=== PATIENT | female | born 1985 | race Caucasian/White ===

== ENCOUNTER 2020-10-14 05:49 | Emergency (ER) | payer BC ==
[~2020-10-14] VITALS: Ht 167.6 cm; Wt 68.1 kg
--- NOTE | 2020-10-14 06:17 | PHYS DOC ---
General Adult EDM: Chief Complaint: VAGINAL BLEEDING HPI: HPI: History obtained from patient. Patient is a 35-year-old female with no reported past medical history who presents with chief complaint of vaginal bleeding. Patient estimates she is currently 10 weeks . 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 States she woke up this morning and noted a light amount of bleeding on her underwear. She denies any clot passage. States it is significantly less than the amount of a period. Denies any abdominal pain. Denies syncope or lightheadedness. States that she did have a miscarriage in July 2020. States that she became shortly after this. She states she is unsure of her last menstrual period. She does note that she follows with a shoulder boner in [facility] and has had an ultrasound at 6 weeks to confirm intrauterine . She notes that she was seen by her shoulder boner 2 days ago and heart tones were unable to be obtained in the clinic. She is concerned she may be experiencing another miscarriage. Denies chest pain or shortness of breath. Denies fevers or vomiting. Denies any urinary symptoms. No other complaints. Review of Systems: Review of Systems: Constitutional: Denies fever or chills. [] Eyes: Denies change in visual acuity. [] HENT: Denies nasal congestion or sore throat. [] Respiratory: Denies cough or shortness of breath. [] Cardiovascular: Denies chest pain or edema. [] GI: Denies abdominal pain, nausea, vomiting, bloody stools or diarrhea. [] : positive for vaginal bleeding Musculoskeletal: Denies back pain or joint pain. [] Integument: Denies rash. [] Neurologic: Denies headache, focal weakness or sensory changes. [] Endocrine: Denies polyuria or polydipsia. [] Lymphatic: Denies swollen glands. [] Psychiatric: Denies depression or anxiety. [] Heart Score: Risk Factors: Risk Factors: DM, Current or recent (<one month) smoker, HTN, HLP, family history of CAD, obesity. Risk Scores: Score 0 - 3: 2.5% MACE over next 6 weeks - Discharge Home Score 4 - 6: 20.3% MACE over next 6 weeks - Admit for Clinical Observation Score 7 - 10: 72.7% MACE over next 6 weeks - Early Invasive Strategies Allergies: Allergies: Allergies Coded Allergies Type Severity Reaction Last Updated Verified Penicillins Allergy Unknown 10/14/20 Yes Physical Exam: PE: Constitutional: Well developed, well nourished, no acute distress, non-toxic appearance. [] HENT: Normocephalic, atraumatic, bilateral external ears normal, oropharynx moist, no oral exudates, nose normal. [] Eyes: PERRLA, EOMI, conjunctiva normal, no discharge. [] Neck: Normal range of motion, no tenderness, supple, no stridor. [] Cardiovascular:Heart rate regular rhythm, no murmur [] Lungs & Thorax: Bilateral breath sounds clear to auscultation [] Abdomen: Soft, nontender, nonacute abdomen. No involuntary guarding or rigidity noted. No acute peritonitis. Skin: Warm, dry, no erythema, no rash. [] Back: No tenderness, no CVA tenderness. [] Extremities: No tenderness, no cyanosis, no clubbing, ROM intact, no edema. [] Neurologic: Alert and oriented X 3, normal motor function, normal sensory function, no focal deficits noted. [] Psychologic: Affect normal, judgement normal, mood normal. [] Current Patient Data: Labs: Laboratory Tests Test 10/14/20 05:59 10/14/20 06:02 10/14/20 06:05 Urine Collection Type Void Urine Color Yellow Urine Clarity Clear Urine pH 6.5 Urine Specific [place] 1.015 Urine Protein Negative mg/dL Urine Glucose (UA) Negative mg/dL Urine Ketones (Stick) Negative mg/dL Urine Blood Small Urine Nitrite Negative Urine Bilirubin Negative Urine Urobilinogen Dipstick 0.2 mg/dL Urine Leukocyte Esterase Negative Urine RBC 3-5 /HPF Urine WBC 1-4 /HPF Urine Squamous Epithelial Cells Mod /LPF Urine Bacteria Few /HPF Bedside Urine HCG, Qualitative Hcg positive Maternal Serum HCG Beta Subunit 22670 mIU/mL Laboratory Tests Test 10/14/20 06:02 POC Urine HCG, Qualitative Hcg positive (Negative) Vital Signs: Vital Signs Date Time Temp Pulse Resp B/P (MAP) Pulse Ox O2 Delivery O2 Flow Rate FiO2 10/14/20 06:05 98.7 110 20 144/77 (99) 96 Room Air 98.7 EKG: EKG: [] Radiology/Procedures: Radiology/Procedures: [facility] [address] [place] [address] IMAGING REPORT Signed PATIENT: MIRTHA MADDEN ACCOUNT: [id number] : 1985 LOCATION: ER AGE: 35 SEX: F EXAM STATUS: REG ER ORD. PHYSICIAN: VALERIE HERNANDEZ DO REASON: vaginal bleeding with ; No Pain PROCEDURE: OB < 14 WKS EXAMINATION: US PRE HYSTEROSALPINGOGRAM (FIRST TRIMESTER PELVIC ULTRASOUND) CLINICAL HISTORY: Vaginal bleeding TECHNIQUE: Sonography of the pelvis was performed by transabdominal techniques. COMPARISON: None. FINDINGS: Intrauterine gestational sac with pole but no visualized yolk sac. heart rate 185 BPM. Sonographic estimated gestational age 10 weeks 1 day based on crown-rump length 33 mm. No evidence of perigestational hemorrhage. Normal sonographic appearance of the gravid uterus. Cervical length 4.3 cm. Bilateral ovaries not visualized. No pelvic free fluid. IMPRESSION: Single live intrauterine with sonographic estimated gestational age 10 weeks 1 day and estimated date of delivery 05/11/2021. Slightly elevated heart rate at 185 BPM. Electronically signed by: Sudhir Moore DO (10/14/2020 8:40 AM) [facility] DI[facility]ATED and SIGNED BY: SUDHIR MOORE DO DATE: 10/14/20 [id number] [] Course & Med Decision Making: Course & Med Decision Making Pertinent Labs and Imaging studies reviewed. (See chart for details) [] Patient is a well-appearing 35-year-old female who presents with chief complaint of light vaginal spotting. She estimates she is 10 weeks . Abdominal exam without any reproducible tenderness. Laboratory analysis grossly unremarkable. Urinalysis not consistent with infection. Blood type a positive therefore RhoGam will be deferred. Ultrasound does show intrauterine with detectable heart rate. I did discuss the possibility of pelvic exam with the patient. Given she is having minimal to no bleeding she is declining at this time. Overall I do feel this is reasonable. Vital signs remained stable. Patient is appropriate for discharge home with follow-up with her LEAD ASSEMBLER. Threatened miscarriage return precautions were discussed and understood. Patient stable for discharge home. Mimi Disclaimer: Mimi Disclaimer: This electronic medical record was generated, in whole or in part, using a voice recognition dictation system. Departure Departure Impression: Primary Impression: Threatened Disposition: 01 DC HOME SELF CARE/HOMELESS Condition: STABLE Referrals: UNKNOWN PCP NAME (PCP) AWAIS MUHAMMAD MD, DONALD G Jr MD Patient Instructions: Threatened Miscarriage Additional Instructions: Please follow-up with your LEAD ASSEMBLER this week. VALERIE HERNANDEZ DO Oct 14, 2020 06:17
[2020-10-14 06:24] LABS: BILIRUBIN,URINE NEGATIVE (NEG); CLARITY,URINE CLEAR; COLOR,URINE YELLOW; NITRITE,URINE NEGATIVE (NEG); PH,URINE 6.5 (<5.0-8.0); PROTEIN,URINE NEGATIVE (NEG-TRACE); UROBILINOGEN,URINE 0.2 mg/dL (0.2 mg/dL)
[2020-10-14 06:30] LABS: BACTERIA,URINE FEW /HPF (0-FEW)
--- NOTE | 2020-10-14 08:42 | RAD ---
EXAMINATION: US PRE HYSTEROSALPINGOGRAM (FIRST TRIMESTER PELVIC ULTRASOUND) CLINICAL HISTORY: Vaginal bleeding TECHNIQUE: Sonography of the pelvis was performed by transabdominal techniques. COMPARISON: None. FINDINGS: Intrauterine gestational sac with pole but no visualized yolk sac. heart rate 185 BPM. So nographic estimated gestational age 10 weeks 1 day based on crown-rump length 33 mm. No evidence of p erigestational hemorrhage. Normal sonographic appearance of the gravid uterus. Cervical length 4.3 cm. Bilateral ovaries not vis ualized. No pelvic free fluid. IMPRESSION: Single live intrauterine with sonographic estimated gestational age 10 weeks 1 day and yani mated date of delivery 05/11/2021. Slightly elevated heart rate at 185 BPM. Electronically signed by: Sudhir Ceballos DO (10/14/2020 8:40 AM) [facility]
[2020-10-14 08:51] VITALS: BP 174/84
== END 2020-10-14 08:50 | disposition home or self-care (01) ==
LOC: ER 05:49
DX: O20.0 Threatened abortion (principal); Z88.0 Allergy status to penicillin; Z3A.10 10 weeks gestation of pregnancy
CPT/HCPCS: 36415; 76801; 81001; 81025; 84702; 86850; 86900; 86901; 99284